=== PATIENT | female | born 1930 | race Caucasian/White ===

== ENCOUNTER 2020-04-11 10:34 | Emergency (ER) | payer BC, MEDICARE ==
[2020-04-11] MEDS ORDERED: Azithromycin 500 MG Tab PO ONE (14:08)
[2020-04-11] MEDS ORDERED: cefTRIAXone 1 GM Vial IVPUSH ONE (14:15)
--- NOTE | 2020-04-11 14:18 | EDM.PDOC ---
ED HPI GENERAL MEDICAL PROBLEM - General Chief Complaint: General Stated Complaint: WEAKNESS Time Seen by Provider: 04/11/20 12:00 Source of Information: Reports: Patient History Limitations: Reports: No Limitations - History of Present Illness INITIAL COMMENTS - FREE TEXT/NARRATIVE: Patient is an 89 y/o female, who presents with mild weakness earlier today. She denies any fever, SOB, cough, abdominal pain, N/V/D, constipation, dysuria, CAPONE, dizziness, or numbness/tingling. Patient lives in the [facility] and wanted to be checked out. During examination and HPI, patient states she feels healthy as a horse. COVID testing was negative. - Related Data Allergies Allergy/AdvReac Type Severity Reaction Status Date / Time formaldehyde Allergy Swollen Verified 04/11/20 12:33 Eyes Home Meds: Home Meds Ascorbic Acid [Vitamin C] 1 tab PO BID 11/02/19 [History] Aspirin [Halfprin] 81 mg PO DAILY 11/02/19 [History] Donepezil [Aricept] 5 mg PO BEDTIME 11/02/19 [History] Isosorbide Mononitrate [Isosorbide Mononitrate ER] 30 mg PO DAILY 11/02/19 [History] Metoprolol Tartrate 1 tab PO BID 11/02/19 [History] amLODIPine [Norvasc] 5 mg PO DAILY 11/02/19 [History] Beta-Carotene(A)-Vits C,E/Mins [Vision Vitamins] 1 each PO DAILY 04/11/20 [History] Cholecalciferol (Vitamin D3) [Vitamin D3] 1,000 unit PO DAILY 04/11/20 [History] Magnesium Oxide [Magnesium] 500 mg PO DAILY 04/11/20 [History] Multivit-Min/Iron/Folic/[id number] [Hair, Skin and Nails Tablet] 1 each PO DAILY 04/11/20 [History] Past Medical History HEENT History: Reports: Hard of Hearing Cardiovascular History: Reports: Hypertension, [place] [employer] LABELS History: Reports: Musculoskeletal History: Reports: Arthritis Endocrine/Metabolic History: Reports: Hyperthyroidism Oncologic (Cancer) History: Reports: Breast - Past Surgical History HEENT Surgical History: Reports: None Oncologic Surgical History: Reports: Mastectomy Social & Family History - Family History Family Medical History: Noncontributory - Tobacco Use Smoking Status *Q: Never Smoker Second Hand Smoke Exposure: No - Caffeine Use Caffeine Use: Reports: None - Recreational Drug Use Recreational Drug Use: No ED ROS GENERAL - Review of Systems Review Of Systems: Comprehensive ROS is negative, except as noted in HPI. ED EXAM, GENERAL - Physical Exam Exam: See Below Exam Limited By: No Limitations General Appearance: Alert, No Apparent Distress Eye Exam: Bilateral Eye: EOMI, Normal Inspection, PERRL Head: Atraumatic, Normocephalic Neck: Normal Inspection, Supple, Non-Tender Respiratory/Chest: No Respiratory Distress, Lungs Clear, Normal Breath Sounds, No Accessory Muscle Use, Chest Non-Tender Cardiovascular: Normal Peripheral Pulses, Regular Rate, Rhythm, No Edema, No Murmur Peripheral Pulses: 2+: Radial (L), Radial (R), Posterior Tibial (L), Posterior Tibial (R), Dorsalis Pedis (L), Dorsalis Pedis (R) GI/Abdominal: Normal Bowel Sounds, Soft, Non-Tender, No Distention Extremities: Normal Inspection, Normal Range of Motion, Non-Tender, No Pedal Edema, Normal Capillary Refill Neurological: Alert, Oriented, CN II-XII Intact, Normal Cognition, Normal Gait, No Motor/Sensory Deficits Skin Exam: Warm, Dry, Intact Lymphatic: No Adenopathy EKG INTERPRETATION EKG Date: 04/11/20 Time: 12:55 Rhythm: Other Rate (Beats/Min): [address] [place]: Normal P-Wave: Present QRS: Normal ST-T: Normal QT: Normal EKG Interpretation Comments: Sinus bradycardia with 1st degree AV block; no ST/Twave changes Course - Vital Signs Text/Narrative:: Patient with RML infiltrate. Rocephin and azithromycin given in the ED. Prescription for azithromycin 250 mg PO x 4 days starting tomorrow. Follow up with Dr. Yeboah in a couple of days (apt made). Return to the ED for fever >102, unable to tolerate fluids, difficulty breathing/swallowing, and/or persistent/worsening symptoms. Last Recorded V/S: Last Vital Signs Temp 36.8 C 04/11/20 12:05 Pulse 56 L 04/11/20 12:05 Resp 18 04/11/20 12:05 BP 134/79 04/11/20 12:05 Pulse Ox 96 04/11/20 12:05 - Orders/Labs/Meds Orders: Active Orders 24 hr Category Date Time Status EKG Documentation Completion [RC] ASDIRECTED Care 04/11/20 12:38 Active Chest 1V Frontal [CR] Stat Exams 04/11/20 12:37 Taken cefTRIAXone [Rocephin] Med 04/11/20 14:15 Once 1 gm IVPUSH ONETIME ONE Medication Orders Ceftriaxone Sodium (Rocephin) 1 gm IVPUSH ONETIME ONE Stop: 04/11/20 14:16 Labs: Laboratory Tests 04/11/20 04/11/20 04/11/20 Range/Units 11:00 12:55 12:55 WBC 7.1 (4.0-11.0) K/uL RBC 4.08 (3.80-5.80) M/uL Hgb 13.3 (11.5-16.5) g/dL Hct 39.0 (37.0-47.0) % MCV 96 (76-96) fL MCH 32.6 H (27.0-32.0) pg MCHC 34.1 (31.0-35.0) g/dL RDW 14.2 (11.0-16.0) % Plt Count 188 (150-500) K/uL MPV 10.5 H (6.0-10.0) fL Neut % (Auto) 64.1 (45.0-70.0) % Lymph % (Auto) 20.6 (20.0-40.0) % [place] % (Auto) 11.3 H (3.0-10.0) % Eos % (Auto) 2.3 (1.0-5.0) % Baso % (Auto) 1.7 H (0.0-0.5) % Neut # (Auto) 4.54 (2.00-7.50) K/uL Lymph # (Auto) 1.46 L (1.50-4.00) K/uL [place] # (Auto) 0.80 (0.20-0.80) K/uL Eos # (Auto) 0.16 (0.04-0.40) K/uL Baso # (Auto) 0.12 H (0.02-0.10) K/uL Sodium (136-145) mmol/L Potassium (3.5-5.1) mmol/L Chloride (98-107) mmol/L Carbon Dioxide (21.0-32.0) mmol/L Anion Gap (5.0-15.0) mmol/L BUN (8-26) mg/dL Creatinine (0.55-1.02) mg/dL Est Cr Clr Drug Dosing mL/min Estimated GFR (MDRD) (>60) MLS/MIN BUN/Creatinine Ratio (6-25) Glucose (74-100) mg/dL Calcium (8.5-10.1) mg/dL Total Bilirubin (0.0-1.0) mg/dL AST (15-37) U/L ALT (12-78) U/L Alkaline Phosphatase (46-116) U/L Troponin I (0.000-0.060) ng/mL Total Protein (6.4-8.2) g/dL Albumin (3.4-5.0) g/dL Globulin (2.2-4.2) g/dL Albumin/Globulin Ratio (0.8-2.0) Urine Color Yellow Urine Appearance Clear (CLEAR) Urine pH 5.5 (5.0-8.0) Ur Specific [place] >= 1.030 (1.003-1.030) Urine Protein Negative (NEGATIVE) mg/dL Urine Glucose (UA) Negative (NEGATIVE) mg/dL Urine Ketones Negative (NEGATIVE) mg/dL Urine Occult Blood Negative (NEGATIVE) Urine Nitrite Negative (NEGATIVE) Urine Bilirubin Negative (NEGATIVE) Urine Urobilinogen 0.2 (0.2-1.0) E.U./dL Ur Leukocyte Esterase Negative (NEGATIVE) COVID-19 (TYLOR) Negative 04/11/20 Range/Units 12:55 WBC (4.0-11.0) K/uL RBC (3.80-5.80) M/uL Hgb (11.5-16.5) g/dL Hct (37.0-47.0) % MCV (76-96) fL MCH (27.0-32.0) pg MCHC (31.0-35.0) g/dL RDW (11.0-16.0) % Plt Count (150-500) K/uL MPV (6.0-10.0) fL Neut % (Auto) (45.0-70.0) % Lymph % (Auto) (20.0-40.0) % [place] % (Auto) (3.0-10.0) % Eos % (Auto) (1.0-5.0) % Baso % (Auto) (0.0-0.5) % Neut # (Auto) (2.00-7.50) K/uL Lymph # (Auto) (1.50-4.00) K/uL [place] # (Auto) (0.20-0.80) K/uL Eos # (Auto) (0.04-0.40) K/uL Baso # (Auto) (0.02-0.10) K/uL Sodium 142 (136-145) mmol/L Potassium 4.3 (3.5-5.1) mmol/L Chloride 107 (98-107) mmol/L Carbon Dioxide 28.2 (21.0-32.0) mmol/L Anion Gap 11.1 (5.0-15.0) mmol/L BUN 22 (8-26) mg/dL Creatinine 0.88 (0.55-1.02) mg/dL Est Cr Clr Drug Dosing 36.55 mL/min Estimated GFR (MDRD) > 60 (>60) MLS/MIN BUN/Creatinine Ratio 25.0 (6-25) Glucose 94 (74-100) mg/dL Calcium 9.4 (8.5-10.1) mg/dL Total Bilirubin 0.2 (0.0-1.0) mg/dL AST 14 L (15-37) U/L ALT 18 (12-78) U/L Alkaline Phosphatase 46 (46-116) U/L Troponin I < 0.017 (0.000-0.060) ng/mL Total Protein 7.3 (6.4-8.2) g/dL Albumin 3.4 (3.4-5.0) g/dL Globulin 3.9 (2.2-4.2) g/dL Albumin/Globulin Ratio 0.9 (0.8-2.0) Urine Color Urine Appearance (CLEAR) Urine pH (5.0-8.0) Ur Specific [place] (1.003-1.030) Urine Protein (NEGATIVE) mg/dL Urine Glucose (UA) (NEGATIVE) mg/dL Urine Ketones (NEGATIVE) mg/dL Urine Occult Blood (NEGATIVE) Urine Nitrite (NEGATIVE) Urine Bilirubin (NEGATIVE) Urine Urobilinogen (0.2-1.0) E.U./dL Ur Leukocyte Esterase (NEGATIVE) COVID-19 (TYLOR) Meds: Medications Generic Name Dose Route Start Last Admin Trade Name Freq PRN Reason Stop Dose Admin Ceftriaxone Sodium 1 gm 04/11/20 14:15 Rocephin IVPUSH 04/11/20 14:16 ONETIME ONE Discontinued Medications Generic Name Dose Route Start Last Admin Trade Name Freq PRN Reason Stop Dose Admin Azithromycin 500 mg 04/11/20 14:08 Zithromax PO 04/11/20 14:09 ONETIME ONE Departure - Departure Time of Disposition: 14:26 Disposition: Home, Self-Care 01 Condition: Good Clinical Impression: Pneumonia Qualifiers: Pneumonia type: due to unspecified organism Laterality: right Lung location: middle lobe of lung Qualified Code(s): J18.9 - Pneumonia, unspecified organism - Discharge Information *PRESCRIPTION DRUG MONITORING PROGRAM REVIEWED*: Not Applicable *COPY OF PRESCRIPTION DRUG MONITORING REPORT IN PATIENT KHOA: Not Applicable Instructions: Community-Acquired Pneumonia, Adult, [id number] Referrals: PCP,None [Primary Care Provider] - Sepsis Event Note (ED) - Focused Exam Vital Signs: Vital Signs Temp Pulse Resp BP Pulse Ox 04/11/20 12:05 36.8 C 56 L 18 134/79 96 - My Orders Last 24 Hours: My Active Orders 04/11/20 12:37 Chest 1V Frontal [CR] Stat 04/11/20 12:38 EKG Documentation Completion [RC] ASDIRECTED 04/11/20 14:15 cefTRIAXone [Rocephin] 1 gm IVPUSH ONETIME ONE - Assessment/Plan Last 24 Hours: My Active Orders 04/11/20 12:37 Chest 1V Frontal [CR] Stat 04/11/20 12:38 EKG Documentation Completion [RC] ASDIRECTED 04/11/20 14:15 cefTRIAXone [Rocephin] 1 gm IVPUSH ONETIME ONE
[2020-04-11] MEDS ORDERED: cefTRIAXone 1 GM Vial IM ONE (14:19)
--- NOTE | 2020-04-11 16:03 | CR ---
Date of Service: 04/11/20 Clinical Data: weakness AP CHEST: No priors. The heart is enlarged. The aorta is calcified and ectatic. The lungs appear clear. No pneumothorax. No pleural effusion. [id number] [facility]
== END 2020-04-11 14:45 | disposition home or self-care (01) ==
LOC: LB.ED 10:34
DX: J18.9 Pneumonia, unspecified organism (principal); I10 Essential (primary) hypertension; I25.2 Old myocardial infarction; M19.90 Unspecified osteoarthritis, unspecified site; Z20.828 Contact with and (suspected) exposure to other viral communicable diseases; Z91.048 Other nonmedicinal substance allergy status; Z79.82 Long term (current) use of aspirin; Z79.899 Other long term (current) drug therapy
CPT/HCPCS: 36415; 71045; 80053; 81003; 84484; 85025; 93005; 96372; 99285-25; A9270-GY; J0696; U0002

== ENCOUNTER 2020-06-05 09:25 | Emergency (ER) | payer MEDICARE ==
--- NOTE | 2020-06-05 09:55 | EDM.PDOC ---
ED HPI GENERAL MEDICAL PROBLEM - General Chief Complaint: General Stated Complaint: NOT FEEL WELL Time Seen by Provider: 06/05/20 09:35 Source of Information: Reports: Patient, RN History Limitations: Reports: No Limitations - History of Present Illness INITIAL COMMENTS - FREE TEXT/NARRATIVE: Patient from [facility], this morning she states she could feel her heart beating in her ears but that has since resolved.. Denies any CP, SOB, cold, cough, abd pain, or palpations. 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 Location: Reports: Chest Improves with: Reports: None Worsens with: Reports: None Associated Symptoms: Reports: No Other Symptoms - Related Data Allergies Allergy/AdvReac Type Severity Reaction Status Date / Time formaldehyde Allergy Swollen Verified 04/11/20 12:33 Eyes Home Meds: Home Meds Ascorbic Acid [Vitamin C] 1 tab PO BID 11/02/19 [History] Aspirin [Halfprin] 81 mg PO DAILY 11/02/19 [History] Donepezil [Aricept] 5 mg PO BEDTIME 11/02/19 [History] Isosorbide Mononitrate [Isosorbide Mononitrate ER] 30 mg PO DAILY 11/02/19 [History] Metoprolol Tartrate 1 tab PO BID 11/02/19 [History] amLODIPine [Norvasc] 5 mg PO DAILY 11/02/19 [History] Cholecalciferol (Vitamin D3) [Vitamin D3] 1,000 unit PO DAILY 04/11/20 [History] Magnesium Oxide [Magnesium] 500 mg PO DAILY 04/11/20 [History] Multivit-Min/Iron/Folic/[id number] [Hair, Skin and Nails Tablet] 1 each PO DAILY 04/11/20 [History] [place] Propolis 2 tab PO BID 06/05/20 [History] Lactobacillus Acidophilus [Acidophilus] 1 each PO DAILY 06/05/20 [History] Lutein/Min/Vit C/Vit E Acetate [Ocuvite Lutein] 1 cap PO BEDTIME 06/05/20 [History] Past Medical History HEENT History: Reports: Hard of Hearing Cardiovascular History: Reports: Hypertension, [place] [employer] History: Reports: Musculoskeletal History: Reports: Arthritis Endocrine/Metabolic History: Reports: Hyperthyroidism Oncologic (Cancer) History: Reports: Breast - Past Surgical History HEENT Surgical History: Reports: None Oncologic Surgical History: Reports: Mastectomy Social & Family History - Family History Family Medical History: Noncontributory - Caffeine Use Caffeine Use: Reports: None ED ROS GENERAL - Review of Systems Review Of Systems: See Below Constitutional: Reports: No Symptoms HEENT: Reports: No Symptoms Respiratory: Reports: No Symptoms Cardiovascular: Reports: No Symptoms Endocrine: Reports: No Symptoms GI/Abdominal: Reports: No Symptoms Musculoskeletal: Reports: No Symptoms Skin: Reports: No Symptoms Neurological: Reports: No Symptoms Psychiatric: Reports: No Symptoms ED EXAM, GENERAL - Physical Exam Exam: See Below Exam Limited By: No Limitations General Appearance: Alert, No Apparent Distress Eye Exam: Bilateral Eye: Normal Inspection Ears: Normal External Exam Ear Exam: Bilateral Ear: Canal Normal, TM normal Nose: Normal Inspection Throat/Mouth: Normal Inspection, Normal Teeth, Normal Gums, Normal Oropharynx, Normal Voice Head: Atraumatic Neck: Normal Inspection, Non-Tender, Full Range of Motion Respiratory/Chest: No Respiratory Distress, Lungs Clear, Normal Breath Sounds Cardiovascular: Normal Peripheral Pulses, No Murmur Peripheral Pulses: 3+: Carotid (L), Carotid (R), Radial (L), Radial (R), Dors fatmata Pedis (L), Dorsalis Pedis (R) GI/Abdominal: Normal Bowel Sounds, Soft, Non-Tender (patient states she has a known hernia LLQ, denies any pain) (Female) Exam: Deferred Rectal (Female) Exam: Deferred Back Exam: Full Range of Motion Extremities: Normal Inspection, Non-Tender, Normal Capillary Refill, Pedal Edema (states she is at baseline with present edema) Neurological: Alert, Oriented Psychiatric: Normal Affect, Normal Mood Skin Exam: Warm, Dry, Intact Course - Orders/Labs/Meds Orders: Active Orders 24 hr Category Date Time Status EKG Documentation Completion [RC] ASDIRECTED Care 06/05/20 09:39 Active CBC WITH AUTO DIFF [HEME] Stat Lab 06/05/20 09:39 Ordered COMPREHENSIVE METABOLIC PN,CMP [CHEM] Stat Lab 06/05/20 09:39 Ordered TROPONIN I [CHEM] Stat Lab 06/05/20 09:39 Ordered EKG 12 Lead [EK] Routine Ther 06/05/20 09:39 Ordered Departure - Departure Time of Disposition: 10:45 Disposition: Home, Self-Care 01 Condition: Good Clinical Impression: Pounding heartbeat, Intermittent palpitations - Discharge Information *PRESCRIPTION DRUG MONITORING PROGRAM REVIEWED*: Not Applicable *COPY OF PRESCRIPTION DRUG MONITORING REPORT IN PATIENT KHOA: Not Applicable Instructions: Palpitations, [id number] Referrals: PCP,None [Primary Care Provider] - Additional Instructions: Follow up with Dr. Yeboah for metoprolol medication recheck. Return to ED for any increased or new concerning symptoms. - Problem List Review Problem List Initiated/Reviewed/Updated: Yes - My Orders Last 24 Hours: My Active Orders 06/05/20 09:39 EKG Documentation Completion [RC] ASDIRECTED CBC WITH AUTO DIFF [HEME] Stat COMPREHENSIVE METABOLIC PN,CMP [CHEM] Stat TROPONIN I [CHEM] Stat EKG 12 Lead [EK] Routine - Assessment/Plan Last 24 Hours: My Active Orders 06/05/20 09:39 EKG Documentation Completion [RC] ASDIRECTED CBC WITH AUTO DIFF [HEME] Stat COMPREHENSIVE METABOLIC PN,CMP [CHEM] Stat TROPONIN I [CHEM] Stat EKG 12 Lead [EK] Routine Assessment:: patient continues to remain pain free. Aware of wait for results. On DEC from [facility], it appears that the patient's metoprolol dosage was changed from BID to QD. She will follow up with PMD about dose changed. DDX: NE, palpitations, PE, GERD, gastritis. Patient denies any CP or SOB, negative troponin, Negative [place] for PE. Upon reevaluation, patient remains pain free and has not had the feeling of her heart beating in her ears while in the ED. At this time I feel the patient is stable for DC back to the [facility], she will return to ED for curtis increased or new concerning symptoms.
--- NOTE | 2020-06-05 10:22 | CR ---
DATE OF SERVICE: 06/05/20 CLINICAL DATA: Chest pain. AP CHEST: Comparison made to a prior exam dated 04/11/20. The patient has taken a poor inspiration. The heart remains enlarged, unchanged. The aorta is calcified and ectatic. There is persistent mild eventration of the right hemidiaphragm. The lungs are clear. No pneumothorax. No pleural effusions. No evidence of acute intrathoracic disease. [id number] [facility]
== END 2020-06-05 10:47 | disposition home or self-care (01) ==
LOC: LB.ED 09:25
DX: R00.2 Palpitations (principal); I10 Essential (primary) hypertension; I25.2 Old myocardial infarction; M19.90 Unspecified osteoarthritis, unspecified site; Z88.3 Allergy status to other anti-infective agents; Z79.82 Long term (current) use of aspirin; Z79.899 Other long term (current) drug therapy
CPT/HCPCS: 36415; 71045; 80053; 84484; 85025; 93005; 99285-25